=== PATIENT | male | born 1960 | race Caucasian/White ===

== ENCOUNTER 2023-03-18 05:56 | Day surgery (SDC) | payer BC ==
[~2023-03-18] VITALS: Ht 175.3 cm; Wt 76.5 kg
[2023-03-18] MEDS ORDERED: PRAVACHOL 20MG20 MG PO (06:19)
[2023-03-18] MEDS ORDERED: FLOMAX 0.40.4 MG/CAP PO (06:19)
[2023-03-18] MEDS ORDERED: B-12 250 MCG (06:20)
[2023-03-18] MEDS ORDERED: FLONASE NASAL S16 GM NS (06:20)
[2023-03-18] MEDS ORDERED: VITAMIN D 400400 IU PO (06:21)
[2023-03-18 08:05] VITALS: BP 115/85; PULSE 66; TEMP 97.5
--- NOTE | 2023-03-18 08:05 | NUR ---
PATIENT AMBULATED TO CHAIR WITH STEADY GAIT, ASSIST OF 2. ALERT AND AWAKE. DENIES PAIN, NAUSEA AND SHORTNESS OF BREATH. BREATHING REGULAR AND UNLABORED ON ROOM AIR. SKIN WARM AND DRY. IV IN PLACE. NURSE HANDOFF COMPLETED IN ROOM. SEE CHART FOR VITAL SIGNS. PATIENT HAD APPLE JUICE AND APPLE SAUCE. BOTH FOOD AND DRINK TOLERATED WELL. CALL LIGHT IN REACH. SPOUSE, GERRY, PRESENT IN ROOM.
[2023-03-18 08:15] VITALS: BP 128/84; PULSE 67
[2023-03-18 08:30] VITALS: BP 130/62; PULSE 88
--- NOTE | 2023-03-18 08:45 | NUR ---
0830: DISCHARGE TEACHING COMPLETED WITH PRINTED EDUCATION AND INSTRUCTIONS SENT HOME WITH PATIENT. PATIENT VERBALIZED UNDERSTANDING OF TEACHING. 0831: MET WITH PATIENT AND SPOUSE IN ROOM TO DISCUSS PROCEDURE. 0840:IV REMOVED. GAUZE AND COBAN PLACED OVER SITE. 0845: PATIENT DISCHARGED HOME WITH [facility] TRANSPORT.
[2023-03-18 12:13] VITALS: BP 130/93; PULSE 75; TEMP 97.1
--- NOTE | 2023-03-18 12:15 | NUR ---
0608 Pt ambulatory to bay 2 with a steady gait, breathing even and unlabored. Pt is alert and oriented, accompanied by his . Consents reviewed and signed by pt. IV established. LR infusing via gravity. Call light in reach. Warm blanket provided.
== END 2023-03-18 08:45 | disposition home or self-care (01) ==
LOC: SDCO 05:56
DX: Z12.11 Encounter for screening for malignant neoplasm of colon (principal)
CPT/HCPCS: J2704; J3010; J7120